=== PATIENT | female | born 1985 | race Caucasian/White ===

== ENCOUNTER 2020-06-24 19:32 | Emergency (ER) | payer OTHER ==
[~2020-06-24] VITALS: Ht 160 cm; Wt 68.0 kg
[2020-06-24 20:08] LABS: URINE COLOR YELLOW
[2020-06-24 20:09] LABS: URINE BILIRUBIN NEGATIVE (Negative); URINE BLOOD TRACE (Negative); URINE CLARITY CLEAR; URINE GLUCOSE-RANDOM NEGATIVE (Negative); URINE KETONES NEGATIVE (Negative); URINE LEUKOCYTES-REFLEX NEGATIVE (Negative); URINE NITRITE-REFLEX NEGATIVE (Negative); URINE PROTEIN 1+ (Negative); URINE SPECIFIC GRAVITY >= 1.030 (1.005-1.030); URINE UROBILINOGEN 0.2 E.U./dl (0.2-1.0)
[2020-06-24] MEDS ORDERED: CYCLOBENZAPRINE5 MG PO (20:44)
[2020-06-24] MEDS ORDERED: HYDROCODON-ACE1 EAC7 PO (20:44)
[2020-06-24] MEDS ORDERED: IBUPROFEN 800800 MG PO (20:44)
[2020-06-24 21:16] VITALS: BP 143/89
== END 2020-06-24 21:18 | disposition home or self-care (01) ==
LOC: M.ERS 19:32
PROVIDERS: Personal Emergency Response Attendant
DX: S00.83XA Contusion of other part of head, initial encounter (principal); M54.2 Cervicalgia; V89.2XXA Person injured in unspecified motor-vehicle accident, traffic, initial encounter; Y93.89 Activity, other specified; Y92.89 Other specified places as the place of occurrence of the external cause; Y99.8 Other external cause status